=== PATIENT | female | born 1985 | race Two or more races ===

== ENCOUNTER 2024-03-07 12:31 | Inpatient (IN) | payer BC ==
[~2024-03-07] VITALS: Ht 165.1 cm; Wt 83.1 kg
[2024-03-07 14:12] LABS: BASOPHILS % (AUTO) 0.4 % (0.0-2.0); EOSINOPHILS # (AUTO) 0.4 K/uL (0.0-0.7); EOSINOPHILS % (AUTO) 3.6 % (0.0-6.0); HEMATOCRIT 39 % (33-45); LYMPHOCYTES % (AUTO) 18.7 % (20.0-44.0); MEAN CORPUSCULAR HEMOGLOBIN 32 PG (26.0-33.0); MEAN CORPUSCULAR HGB CONC 33 g/dl (31.0-36.0); MEAN CORPUSCULAR VOLUME 94 fL (82-100); MONOCYTES # (AUTO) 0.9 K/uL (0.1-1.30); MONOCYTES % (AUTO) 8.5 % (2.0-12.0); NEUTROPHILS # (AUTO) 7.3 K/uL (1.8-8.9); NEUTROPHILS % (AUTO) 68.8 % (43.0-81.0); PLATELET COUNT (AUTO) 333 K/uL (150-450); RED BLOOD CELL COUNT(AUTO) 4.11 MIL/uL (4.0-5.2); RED CELL DISTRIBUTION WIDTH 14.5 % (11.5-15.0); WHITE BLOOD COUNT (AUTO) 10.6 K/uL (4.3-11.0)
[2024-03-07 14:19] LABS: CALCIUM, SERUM 9.1 mg/dL (8.5-10.1); CREATININE 0.8 mg/dL (0.6-1.3); POTASSIUM 4.1 mmol/L (3.5-5.1)
[2024-03-07 14:30] LABS: ALBUMIN 3.9 g/dL (3.4-5.0); BILIRUBIN,DIRECT 0.2 mg/dL (0.0-0.2); BILIRUBIN,TOTAL 0.6 mg/dL (0.2-1.0); TOTAL PROTEIN, SERUM 8.4 g/dL (6.4-8.2)
[2024-03-07 14:37] LABS: APPEARANCE,URINE Slightly Cloudy (CLEAR); BILIRUBIN,URINE Negative (NEGATIVE); BLOOD, URINE Negative Ery/uL (NEGATIVE); COLOR,URINE YELLOW (YELLOW); KETONES,URINE 40 mg/dL (NEGATIVE); LEUKOCYTE ESTERASE ,URINE Negative (NEGATIVE); NITRITE, URINE Negative (NEGATIVE); PH,URINE 5.5 (5.0-8.0); PROTEIN,URINE Negative (NEGATIVE); UGLUCOSE Negative (NEGATIVE); UROBILINOGEN,URINE 0.2 EU/dL (0.2)
[2024-03-07 14:52] LABS: ADD URINE CULTURE NO; BACTERIA,URINE Few /HPF (None Seen); RBC,URINE 0-2 /HPF (0-2); URINE AMORPHOUS URATE Few /HPF (None Seen); WBC,URINE 0-2 /HPF (0-3)
[2024-03-07 15:10] LABS: PREGNANCY TEST URINE QUAL NEGATIVE (NEGATIVE)
[2024-03-07 16:38] LABS: INR 0.97 (0.91-1.10); PARTIAL THROMBOPLASTIN TIME 30.1 SEC (24.3-34.3)
[2024-03-07] MEDS ORDERED: IBUP-1953 PO (16:56)
[2024-03-07] MEDS ORDERED: OMEP20TA5 PO (16:56)
[2024-03-07] MEDS ORDERED: ONDA4TAB5 PO (16:56)
[2024-03-07] MEDS ORDERED: PIPERACI/TAZO 3.375GM/D5W 50ML PB IV ONE (17:12)
[2024-03-07] MEDS: PIPERACILLIN /TAZOBACTAM 3.375 G in IV D5W 50 ML IV ONE (17:25)
[2024-03-07] MEDS: IV NS 0.9% 1,000 ML BAG IV ONE (17:25)
[2024-03-07] MEDS ORDERED: ONDANSETRON HCL/PF 4 MG/2 ML VIAL IVP PRN (21:30)
[2024-03-07] MEDS ORDERED: ACETAMINOPHEN 325 MG TABLET PO PRN (21:30)
[2024-03-07] MEDS: MORPHINE SULFATE INJ 2 MG/ML DISP.SYRIN IV ONE (21:45)
[2024-03-07] MEDS: IV NS 0.9% 1,000 ML IV SCH (23:24)
[2024-03-07] MEDS: MORPHINE SULFATE INJ 2 MG/ML DISP.SYRIN IV PRN (23:29)
[2024-03-08] MEDS ORDERED: CEFEPIME 1 GM VIAL ONE (01:01)
[2024-03-08] MEDS: CEFEPIME 2 GM in IV D5W 100 ML IV SCH (02:53)
[2024-03-08 07:45] LABS: BASOPHILS % (AUTO) 0.2 % (0.0-2.0); EOSINOPHILS # (AUTO) 0.1 K/uL (0.0-0.7); EOSINOPHILS % (AUTO) 0.6 % (0.0-6.0); HEMATOCRIT 38 % (33-45); HEMOGLOBIN 12.6 g/dL (11.5-14.8); LYMPHOCYTES # (AUTO) 1.9 K/uL (0.8-4.8); LYMPHOCYTES % (AUTO) 12.5 % (20.0-44.0); MEAN CORPUSCULAR HEMOGLOBIN 32 PG (26.0-33.0); MEAN CORPUSCULAR HGB CONC 34 g/dl (31.0-36.0); MEAN CORPUSCULAR VOLUME 95 fL (82-100); MONOCYTES # (AUTO) 1.3 K/uL (0.1-1.30); MONOCYTES % (AUTO) 8.2 % (2.0-12.0); NEUTROPHILS # (AUTO) 12.1 K/uL (1.8-8.9); NEUTROPHILS % (AUTO) 78.5 % (43.0-81.0); PLATELET COUNT (AUTO) 366 K/uL (150-450); RED BLOOD CELL COUNT(AUTO) 3.93 MIL/uL (4.0-5.2); RED CELL DISTRIBUTION WIDTH 14.5 % (11.5-15.0); WHITE BLOOD COUNT (AUTO) 15.4 K/uL (4.3-11.0)
[2024-03-08 08:01] LABS: ALBUMIN 3.2 g/dL (3.4-5.0); BILIRUBIN,TOTAL 0.9 mg/dL (0.2-1.0); CALCIUM, SERUM 8.7 mg/dL (8.5-10.1); CREATININE 0.6 mg/dL (0.6-1.3); MAGNESIUM 2.4 mg/dL (1.8-2.4); PHOSPHORUS 3.6 mg/dL (2.5-4.9); POTASSIUM 4.3 mmol/L (3.5-5.1); TOTAL PROTEIN, SERUM 8.2 g/dL (6.4-8.2)
[2024-03-08] MEDS: HEPARIN SODIUM, PORCINE 5000 UNITS/1 ML VIAL SQ SCH (09:00)
[2024-03-08 11:00] VITALS: BP 142/95; TEMP 98.8; O2SAT 97
[2024-03-08 20:00] VITALS: BP 152/84; TEMP 100; O2SAT 95
[2024-03-09] VITALS (11 sets, daily range): BP systolic 125–148; BP diastolic 79–100; TEMP 97.5–99.5; O2SAT 96–99
[2024-03-09 06:43] LABS: BASOPHILS % (AUTO) 0.2 % (0.0-2.0); EOSINOPHILS # (AUTO) 0.1 K/uL (0.0-0.7); EOSINOPHILS % (AUTO) 1.1 % (0.0-6.0); HEMATOCRIT 35 % (33-45); HEMOGLOBIN 11.7 g/dL (11.5-14.8); LYMPHOCYTES # (AUTO) 1.7 K/uL (0.8-4.8); LYMPHOCYTES % (AUTO) 14.3 % (20.0-44.0); MEAN CORPUSCULAR HEMOGLOBIN 32 PG (26.0-33.0); MEAN CORPUSCULAR HGB CONC 33 g/dl (31.0-36.0); MEAN CORPUSCULAR VOLUME 95 fL (82-100); MONOCYTES # (AUTO) 1.5 K/uL (0.1-1.30); MONOCYTES % (AUTO) 12.5 % (2.0-12.0); NEUTROPHILS # (AUTO) 8.4 K/uL (1.8-8.9); NEUTROPHILS % (AUTO) 71.9 % (43.0-81.0); PLATELET COUNT (AUTO) 347 K/uL (150-450); RED BLOOD CELL COUNT(AUTO) 3.71 MIL/uL (4.0-5.2); RED CELL DISTRIBUTION WIDTH 14.4 % (11.5-15.0); WHITE BLOOD COUNT (AUTO) 11.7 K/uL (4.3-11.0)
[2024-03-09 07:05] LABS: CALCIUM, SERUM 8.9 mg/dL (8.5-10.1); CREATININE 0.7 mg/dL (0.6-1.3); POTASSIUM 3.8 mmol/L (3.5-5.1)
[2024-03-09] MEDS ORDERED: IV NS 0.9% 1,000 ML IV PRN (07:30)
[2024-03-09] MEDS ORDERED: FENTANYL PF 250MCG/5ML AMPUL ONE (09:13)
[2024-03-09] MEDS ORDERED: ROCURONIUM BROMIDE 50 MG/5 ML ONE (09:14)
[2024-03-09] MEDS ORDERED: MIDAZOLAM HCL 2 MG/2ML VIAL ONE (09:14)
[2024-03-09] MEDS ORDERED: SEVOFLURANE 250 ML BOTTLE IH ONE (09:26)
[2024-03-09] MEDS ORDERED: BUPIVACAINE 0.5 % PF 150 MG/30 ML VIAL ONE (09:42)
[2024-03-09] MEDS ORDERED: LIDOCAINE 1%-EPI 1:100,000 20 ML VIAL ONE (09:42)
[2024-03-09] MEDS ORDERED: GELATIN SPONGE,ABSORBABLE 1 EA SPONGE TP ONE (11:17)
[2024-03-09] MEDS ORDERED: THROMBIN (BOVINE) 5,000 UNITS VIAL TP ONE (11:17)
[2024-03-09] MEDS ORDERED: BACITRACIN ZINC OINT (15 GM) 15 GM TUBE TP ONE (11:37)
[2024-03-09] MEDS ORDERED: HYDROMORPHONE 1 MG/1 ML DISP.SYRIN ONE ×2 (12:15→12:32)
[2024-03-09] MEDS: IV LR 1000 ML 1,000 ML IV PRN (13:19)
[2024-03-09] MEDS ORDERED: IV LR 1000 ML 1,000 ML IV PRN (13:30)
[2024-03-09] MEDS: PANTOPRAZOLE 40 MG VIAL IV SCH (14:12)
[2024-03-09] MEDS ORDERED: PANTOPRAZOLE 40 MG VIAL IV SCH (21:00)
[2024-03-10] VITALS (20 sets, daily range): BP systolic 115–163; BP diastolic 55–103; TEMP 98.2–98.5; O2SAT 94–99
[2024-03-10] MEDS: MORPHINE SULFATE INJ 2 MG/ML DISP.SYRIN IV PRN (00:17)
[2024-03-10 04:51] LABS: BASOPHILS % (AUTO) 0.2 % (0.0-2.0); EOSINOPHILS % (AUTO) 0.1 % (0.0-6.0); HEMATOCRIT 33 % (33-45); LYMPHOCYTES # (AUTO) 1.4 K/uL (0.8-4.8); LYMPHOCYTES % (AUTO) 9.7 % (20.0-44.0); MEAN CORPUSCULAR HEMOGLOBIN 32 PG (26.0-33.0); MEAN CORPUSCULAR HGB CONC 33 g/dl (31.0-36.0); MEAN CORPUSCULAR VOLUME 94 fL (82-100); MONOCYTES # (AUTO) 1.5 K/uL (0.1-1.30); MONOCYTES % (AUTO) 10.4 % (2.0-12.0); NEUTROPHILS # (AUTO) 11.9 K/uL (1.8-8.9); NEUTROPHILS % (AUTO) 79.6 % (43.0-81.0); PLATELET COUNT (AUTO) 454 K/uL (150-450); RED BLOOD CELL COUNT(AUTO) 3.49 MIL/uL (4.0-5.2); RED CELL DISTRIBUTION WIDTH 14.6 % (11.5-15.0); WHITE BLOOD COUNT (AUTO) 14.9 K/uL (4.3-11.0)
[2024-03-10 04:55] LABS: CALCIUM, SERUM 8.8 mg/dL (8.5-10.1); CREATININE 0.6 mg/dL (0.6-1.3)
[2024-03-10] MEDS: CELECOXIB 100 MG CAPSULE PO SCH (08:09)
[2024-03-10] MEDS: ACETAMINOPHEN 325 MG TABLET PO SCH (08:10)
[2024-03-10] MEDS: GABAPENTIN 100 MG CAPSULE PO SCH (08:10)
[2024-03-11 04:00] VITALS: BP 133/92; TEMP 98.6; O2SAT 99
[2024-03-11 08:00] VITALS: BP 125/94; TEMP 98.4; O2SAT 100
[2024-03-11 08:15] LABS: BASOPHILS % (AUTO) 0.3 % (0.0-2.0); EOSINOPHILS # (AUTO) 0.2 K/uL (0.0-0.7); EOSINOPHILS % (AUTO) 2.5 % (0.0-6.0); HEMATOCRIT 29 % (33-45); HEMOGLOBIN 9.8 g/dL (11.5-14.8); LYMPHOCYTES # (AUTO) 1.8 K/uL (0.8-4.8); LYMPHOCYTES % (AUTO) 25.5 % (20.0-44.0); MEAN CORPUSCULAR HEMOGLOBIN 32 PG (26.0-33.0); MEAN CORPUSCULAR HGB CONC 34 g/dl (31.0-36.0); MEAN CORPUSCULAR VOLUME 94 fL (82-100); MONOCYTES # (AUTO) 0.7 K/uL (0.1-1.30); MONOCYTES % (AUTO) 9.2 % (2.0-12.0); NEUTROPHILS # (AUTO) 4.5 K/uL (1.8-8.9); NEUTROPHILS % (AUTO) 62.5 % (43.0-81.0); PLATELET COUNT (AUTO) 405 K/uL (150-450); RED BLOOD CELL COUNT(AUTO) 3.08 MIL/uL (4.0-5.2); RED CELL DISTRIBUTION WIDTH 14.3 % (11.5-15.0); WHITE BLOOD COUNT (AUTO) 7.2 K/uL (4.3-11.0)
[2024-03-11 12:00] VITALS: BP 125/94; TEMP 98.4; O2SAT 100
[2024-03-11] MEDS ORDERED: TRAM50TA2 PO (13:39)
[2024-03-11] MEDS ORDERED: CELE100C PO (13:39)
[2024-03-11] MEDS ORDERED: AMOX-430 PO (13:39)
[2024-03-11] MEDS ORDERED: GABA-532 PO (13:39)
[2024-03-11 16:00] VITALS: BP 129/92; TEMP 98.4; O2SAT 95
[2024-03-11] MEDS ORDERED: PANTOPRAZOLE 40 MG TABLET.DR PO SCH (21:00)
== END 2024-03-11 18:46 | disposition home or self-care (01) | DRG 410 ==
LOC: ER 12:37 → MED 22:24 → ICU 03-09 12:51 → MEDSG1 03-10 17:24
PROVIDERS: ADMIT Internal Medicine; ATTEND Nurse Practitioner Family
PROC: 0FT40ZZ Resection of Gallbladder, Open Approach (ICD-10-PCS; principal; 2024-03-09)
PROC: 0DNU0ZZ Release Omentum, Open Approach (ICD-10-PCS; 2024-03-09)
PROC: 0F9400Z Drainage of Gallbladder with Drainage Device, Open Approach (ICD-10-PCS; 2024-03-09)
DX: K80.12 Calculus of gallbladder with acute and chronic cholecystitis without obstruction (principal); K82.A1 Gangrene of gallbladder in cholecystitis; K66.0 Peritoneal adhesions (postprocedural) (postinfection); Z98.890 Other specified postprocedural states; K21.9 Gastro-esophageal reflux disease without esophagitis; K82.8 Other specified diseases of gallbladder; Z83.3 Family history of diabetes mellitus; D72.829 Elevated white blood cell count, unspecified
CPT/HCPCS: 36415; 78226; 80048-TC; 80053-TC; 80076-TC; 81001; 83690-TC; 83735-TC; 84100-TC; 84702-TC; 84703-TC; 85025-TC; 85730-TC; 86850-TC; 87086-TC; A4223; A9537; G0378; J0330; J0690; J0692; J1100; J1170; J1644; J2250; J2270; J2405; J2470; J2543; J2704; J3010; J3490; J7030; J7050; J7060; J7120